=== PATIENT | female | born 1965 | race Caucasian/White ===

== ENCOUNTER 2016-07-04 16:27 | Emergency (ER) | payer OTHER ==
--- NOTE | ~2016-07-04 | CT4 ---
[facility] A Service of [facility] RADIOLOGY TEXT RESULTS PATIENT: FLORENCE MONET LOCATION: SED : 61 UNIT #: [id number] AGE: [address]: Ayush Pemberton MD SEX: F ORDER DR: [id number] [address] [id number] MR#: [id number] Acc #: [id number] NAME: FLORENCE MONET : 1965 SEX: F STUDY DATE/TIME: 07/04/2016 17:27 UNIT: SED ROOM: STUDY DESCRIPTION: CT Abd and Pelv Wo Cont Attending Physician: Ayush Pemberton M.D. Referring Physician: Ayush Pemberton M.D. Ordering Physician: Ayush Pemberton M.D. Primary Care Physician: Zeenat Maurer A.P.R.N. MEDICAL IMAGING REPORT This report is preliminary unless electronic signature is present. EXAM CT abdomen and pelvis. DATE OF EXAM 07/04/2016 HISTORY The history is vomiting, back pain, lower x10 today, x4 days, out of hydrocodone. Fever. Prior history of asthma, diverticulitis. Migraines, cholecystectomy, hysterectomy, colon surgery. TECHNIQUE CT of the abdomen and pelvis performed without administration of oral or intravenous contrast. This CT exam was performed with one or more of the following radiation dose reduction techniques: automatic exposure control, adjustment of mA and/or kV according to patient size, and iterative reconstruction. COMPARISON Comparison to a contrast-enhanced examination 11/26/2015. FINDINGS Lung bases clear. Inferior heart and pericardium unremarkable. Diffuse fatty infiltration of the liver. Tiny subcentimeter capsular lobulation lateral aspect of segment 6 of the liver unchanged from prior examination and also unchanged from the study dated 05/07/2013. The appearance is indeterminate but given stability since April 2013, benign etiology strongly favored. The patient's left hepatic lobe hemangioma seen on prior contrast-enhanced examinations is not demonstrated on the noncontrast enhance study today. Post-cholecystectomy without biliary obstruction. Spleen, pancreas, adrenal glands, kidneys show no acute abnormality. No hydronephrosis or nephrolithiasis. No perinephric inflammatory change. Imaging of mid abdomen degraded by respiratory STS. [facility] A Service of [facility] RADIOLOGY TEXT RESULTS PATIENT: FLORENCE MONET [place] [facility] 61 UNIT #: [id number] AGE: [address]: Ayush Pemberton MD SEX: F ORDER DR: motion artifact. No ureteral dilatation or indication of recent stone passage. CT PELVIS: No inguinal adenopathy. Urinary bladder unremarkable. Status post hysterectomy. 3.9 cm cysts in the right adnexa not significantly changed from November 2015, when it measured about 4 cm. It measured about 3.6 cm in 2013. Given stability over this time-frame, I favor that this is a benign cyst. No surrounding inflammatory change. There is no pelvic or retroperitoneal adenopathy. Distal esophagus, stomach, small bowel notable for extension of small bowel loop into a wide-mouth umbilical hernia. No change from prior examination. The hernia mouth measures approximately 4 x 4 cm in diameter compared to 3.8 cm on prior examination. There is no evidence of complication. No obstruction. No inflammatory change. The appendix is not clearly identified but no pericecal or right lower quadrant inflammatory change is seen. Scattered colonic diverticula more numerous in the left hemicolon. No evidence of diverticulitis. Postoperative changes proximal sigmoid colon. No abnormal soft tissue at the anastomosed line. No aneurysm. The bony structures show no acute abnormality. IMPRESSION 1. There is no clearly acute abnormality seen in the abdomen or pelvis. Some images are degraded by respiratory motion artifact. No renal calculi or obstruction and no perinephric inflammatory change. 2. Postoperative changes of cholecystectomy and hysterectomy. 3. 3.9 cm cyst in the right adnexa not significantly changed from November 2015. Also present on a study from 2013, where it is marginally smaller. Given overall stability since 2013, benign cyst strongly favored. 4. Diffuse fatty infiltration of liver. No suspicious focal abnormalities seen. Previously described left hepatic lobe hemangioma not evident on noncontrast enhanced imaging. 5. Colonic diverticulosis without imaging findings of diverticulitis. Stable appearance of prior sigmoid resection. No abnormal soft tissue at the anastomotic line. 6. Umbilical hernia containing fat and a loop of small bowel without complication. Similar appearance on prior study. See remainder of incidental findings in body of report above. Dictated by... Karsten Aranda M.D. THIS IS AN ELECTRONICALLY VERIFIED REPORT Karsten Aranda M.D. at 07/08/2016 11:00 PM DERICK/demond TD: 07/04/2016 22:17 JOB #: [id number] [facility] A Service of [facility] RADIOLOGY TEXT RESULTS PATIENT: FLORENCE MONET [place] [facility] [place] 61 UNIT #: [id number] AGE: [address]: Ayush Pemberton MD SEX: F ORDER DR: MEDICAL IMAGING REPORT Page 1 of 1
[~2016-07-04 16:27] MED LIST: ALBUTEROL17 GM INH; ALLERGY MED; ALLERGY10 M1 PO; AMITRIPTYLINE H50 MG PO; AMITRIPTYLINE H75 MG PO; AMITRYPTYLINE PO; ANEXSIA 7.5/3251 TA1 PO; ATIVAN PO; BACLOFEN10 MG; BACLOFEN10 MG PO; BENZONATATE PO; CELEXA PO; CELEXA20 MG PO; CETIRIZINE HCL10 MG PO; CHOLESTEROL MED PO; CIPRO PO; CLARITIN-D 241 EACH PO; CLEOCIN PO; DARVOCET-N 1001 TAB PO; DOXYCYCLINE150 MG PO; ERYC250 MG PO; ERYTHROMYCIN500 MG PO; FLAGYL PO; FLAGYL250 M1 PO; FLEXERIL PO; FLEXERIL10 M1 PO; FLEXERIL10 MG PO; FLONASE 0.05% N16 G1 INH; HYDROCHLOROTHIA25 MG PO; HYDROCODON-ACE1 EAC1 PO; HYDROCODON-ACE1 EAC5; HYDROCODON-ACE1 EAC7 PO; HYDROCODON-ACE1 EAC9 PO; HYDROXYZINE HCL50 MG PO; IBUPROFEN100 MG PO; IBUPROFEN800 MG PO; KEFLEX500 M1 PO; KEFLEX500 MG PO; KLOR-CON PO; LASIX PO; LASIX20 MG PO; LEVAQUIN PO; LEVAQUIN750 MG PO; LISINOPRIL PO; LISINOPRIL20 MG PO; LOPRESSOR PO; LORATADINE PO; LORTAB 10-5001 EACH PO; LORTAB 5/500 TA1 TA2 PO; LORTAB 7.5-5001 TAB PO; MACROBID 100 M100 MG PO; MEDROL4 MG/DOSE- PO; METOPROLOL PO; METOPROLOL SUCC50 MG PO; METOPROLOL TART25 MG PO; MICRO-K10 MEQ PO; NAPROSYN-EC500 M1 PO; NAPROSYN500 MG PO; NAPROXEN PO; NAPROXEN SODIU550 MG PO; NERVE PILL PO; NORCO 7.5/325 T1 TAB PO; NORVASC PO; NORVASC10 MG PO; NORVASC2.5 MG PO; PERCOCET5/325 PO; POTASSIUM PO; PRAVACHOL20 MG PO; PRAVASTATIN SOD20 MG PO; PREDNISONE10 MG PO; PRILOSEC20 MG DOB; PRILOSEC20 MG PO; PRILOSEC40 MG PO; PRINIVIL20 M1 PO; PROTONIX PO; PYRIDIUM PO; REGLAN PO; RIZATRIPTAN10 M2 PO; ROBAXIN 750750 MG; ROBAXIN 750750 MG PO; ROBAXIN PO; ROBAXIN500 MG PO; ROBITUSSIN-DM120 ML PO; SLEEPING PILL PO; SUPRAX PO; TRAZODONE PO; TRIAMCINOLONE AC1 GM EXT; VICODIN 5/1 TAB 5/50; VICODIN 5/1 TAB 5/50 DOB; VICODIN 5/1 TAB 5/50 PO; VICODIN ES 7.51 EAC1 PO; VISTARIL50 MG PO; VOLTAREN50 MG PO; VOLTAREN75 MG PO; ZANTAC150 MG PO; ZOFRAN ODT4 MG DOB; ZOFRAN ODT4 MG PO; ZOFRAN PO; ZOFRAN8 MG PO; ZYRTEC10 M2 PO; [UNRECOGNIZED DRUG - REMARK] PO
[2016-07-04 16:56] LABS: URINE SOURCE CLEAN CATCH
[2016-07-04 16:58] LABS: URINE APPEARANCE CLOUDY; URINE BILIRUBIN NEG (NEG); URINE BLOOD TRACE-LYSED (NEG); URINE COLOR YELLOW; URINE GLUCOSE NEG (NORM); URINE KETONE NEG (NEG); URINE LEUKOCYTE ESTERASE NEG (NEG); URINE NITRATE NEG (NEG); URINE PROTEIN TRACE (NEG); URINE SPECIFIC GRAVITY 1.015 (1.003-1.035)
[2016-07-04 17:04] LABS: MICRO INDICATED? YES
[2016-07-04 17:05] LABS: CULTURE INDICATED? YES; URINE SQUAMOUS EPITHELIAL CELL OCCAS /[HPF]
[2016-07-04 17:06] LABS: URINE AMORPHOUS SEDIMENT AMORP PHOSPHATES; URINE BACTERIA 1+ (NEG); URINE GRANULAR CAST 0-2 /[HPF]; URINE HYALINE CAST 0-2 /[HPF]; URINE MUCUS PRESENT; URINE TRANSITIONAL EPI CELLS FEW /[HPF]; URINE WHITE BLOOD CELL CAST 0-2 /[HPF]
[2016-07-04 17:17] LABS: BASOPHIL# 0.1 X10e3 (0-0.3); BASOPHIL% 1.1 % (0-2.5); EOSINOPHIL# 0.1 X10e3 (0-0.7); EOSINOPHIL% 0.8 % (0.0-7.0); HEMATOCRIT 42.1 % (35.0-45.0); HEMOGLOBIN 14.4 gm/dL (12.0-16.0); LYMPHOCYTE# 2.1 X10e3 (1.0-3.5); LYMPHOCYTE% 23.1 % (17.0-45.0); MEAN CELL VOLUME 88.6 FL (83-96); MEAN CORPUSCULAR HEMOGLOBIN 30.4 PG (28-34); MEAN CORPUSCULAR HGB CONC 34.3 g/dL (30-36); MEAN PLATELET VOLUME 9.7 FL (6.5-11.5); MONOCYTE% 11.1 % (3.0-12.0); NEUTROPHIL# 5.8 X10e3 (1.5-7.1); NEUTROPHIL% 63.9 % (40-75); PLATELET COUNT 170 X10e3 (140-420); RED BLOOD COUNT 4.75 X10e (3.90-5.30); RED CELL DISTRIBUTION WIDTH 13.5 % (11.0-15.5); WHITE BLOOD COUNT 9.1 X10e3 (4.0-10.5)
[2016-07-04 17:18] LABS: DIFF IND NO
[2016-07-04 17:42] LABS: ALBUMIN SERUM 3.9 g/dL (3.5-5.0); BILIRUBIN, DIRECT 0.1 mg/dL (0.0-0.2); BILIRUBIN,INDIRECT 0.7 mg/dL (0.0-0.9); BILIRUBIN,TOTAL 0.8 mg/dL (0.2-2.0); BUN/CREATININE RATIO 14.28; CALCIUM SERUM 8.6 mg/dL (8.4-10.2); CREATININE SERUM 0.7 mg/dL (0.6-1.4); GLOM FILT RATE Estimated 98.9 mL/min (>60); PROTEIN TOTAL SERUM 7.4 g/dL (6.0-8.3)
[2016-07-04 17:44] LABS: POTASSIUM 2.8 mmol/L (3.5-5.1)
[2016-07-04] MEDS ORDERED: VOLTAREN75 MG PO (18:19)
[2016-07-04] MEDS ORDERED: LEVAQUIN750 MG PO (18:19)
== END 2016-07-04 18:19 | disposition home or self-care (01) ==
LOC: SED 16:27
PROVIDERS: Emergency Medicine
DX: N39.0 Urinary tract infection, site not specified (principal); Z90.49 Acquired absence of other specified parts of digestive tract; Z88.0 Allergy status to penicillin; Z88.2 Allergy status to sulfonamides; Z79.899 Other long term (current) drug therapy
CPT/HCPCS: 36415; 74176; 80048; 80076; 81003; 82150; 83605; 83690; 85025; 87040; 87086; 96361; 96374; 99284; J2405

== ENCOUNTER 2016-07-06 21:34 | Emergency (ER) | payer OTHER ==
[2016-07-06 23:08] LABS: URINE SOURCE CLEAN CATCH
[2016-07-06 23:12] LABS: URINE APPEARANCE CLOUDY; URINE BLOOD NEG (NEG); URINE COLOR DK YELLOW; URINE GLUCOSE NEG (NEG); URINE KETONE 3+ (NEG); URINE LEUKOCYTE ESTERASE TRACE (NEG); URINE NITRATE NEG (NEG); URINE PH 6.5 (5-8); URINE PROTEIN TRACE (NEG); URINE SPECIFIC GRAVITY 1.021 (1.003-1.035)
[2016-07-06 23:15] LABS: CULTURE INDICATED? YES; URINE BACTERIA AUWI 2+ (NEGATIVE); URINE SQUAMOUS EPITHELIAL CELL FEW /[HPF]
[2016-07-06 23:22] LABS: URINE BILIRUBIN NEG (NEG)
[2016-07-06 23:27] LABS: BASOPHIL# 0.1 X10e3 (0-0.3); BASOPHIL% 0.9 % (0-2.5); EOSINOPHIL% 0.6 % (0.0-7.0); HEMATOCRIT 45.1 % (35.0-45.0); HEMOGLOBIN 15.2 gm/dL (12.0-16.0); LYMPHOCYTE# 1.6 X10e3 (1.0-3.5); LYMPHOCYTE% 23.3 % (17.0-45.0); MEAN CELL VOLUME 88.6 FL (83-96); MEAN CORPUSCULAR HEMOGLOBIN 29.9 PG (28-34); MEAN CORPUSCULAR HGB CONC 33.8 g/dL (30-36); MEAN PLATELET VOLUME 9.7 FL (6.5-11.5); MONOCYTE# 0.8 X10e3 (0-1.0); MONOCYTE% 11.7 % (3.0-12.0); NEUTROPHIL# 4.3 X10e3 (1.5-7.1); NEUTROPHIL% 63.5 % (40-75); PLATELET COUNT 170 X10e3 (140-420); RED BLOOD COUNT 5.09 X10e (3.90-5.30); RED CELL DISTRIBUTION WIDTH 13.8 % (11.0-15.5); WHITE BLOOD COUNT 6.8 X10e3 (4.0-10.5)
[2016-07-06 23:28] LABS: DIFF IND NO
[2016-07-06 23:57] LABS: BILIRUBIN, DIRECT 0.1 mg/dL (0.0-0.2); BILIRUBIN,INDIRECT 0.7 mg/dL (0.0-0.9); BILIRUBIN,TOTAL 0.8 mg/dL (0.2-2.0); BUN/CREATININE RATIO 14.28; CALCIUM SERUM 8.8 mg/dL (8.4-10.2); CREATININE SERUM 0.7 mg/dL (0.6-1.4); GLOM FILT RATE Estimated 98.9 mL/min (>60); POTASSIUM 2.8 mmol/L (3.5-5.1); PROTEIN TOTAL SERUM 7.7 g/dL (6.0-8.3)
== END 2016-07-07 01:15 | disposition home or self-care (01) ==
LOC: CED 21:34
DX: N39.0 Urinary tract infection, site not specified (principal); Z88.2 Allergy status to sulfonamides; Z88.5 Allergy status to narcotic agent; Z88.8 Allergy status to other drugs, medicaments and biological substances; Z79.899 Other long term (current) drug therapy
CPT/HCPCS: 36415; 80048; 80076; 81003; 83690; 85025; 87086; 96365; 96375; 99284; J0696; J0780; J1885